=== PATIENT | female | born 1995 | race Caucasian/White ===

== ENCOUNTER 2022-12-11 14:32 | Outpatient (CLI) | payer OTHER ==
[2022-12-11] MEDS ORDERED: ACETAMINOPHEN TAB 500 MG TAB PO PRN (15:18)
[2022-12-11 15:30] LABS: Appearance,Urine Cloudy (Clear); Bacteria,Urine Occasional /hpf; Bilirubin,Urine Negative (Negative); Blood,Urine Small (Negative); Color,Urine Yellow; Glucose,Urine (UA) Negative (Negative); Ketones,Urine Negative (Negative); Leukocyte Esterase,Urine Trace (Negative); Mucus,Urine Rare /hpf; Nitrite,Urine Negative (Negative); PH, Urine 6.5 (5.0-8.0); Protein,Urine 4+ (Negative); RBC,Urine 2 /hpf (0-5); Specific Gravity,Urine 1.026 (1.001-1.035); Squamous Epithelial Cell,Urine 5 /hpf (0-4); Urobilinogen,Urine <2.0 mg/dL (<2.0); WBC,Urine 21 /hpf (0-5)
[2022-12-11] MEDS ORDERED: BETAMET ACET-BETAMETH SOD PHOS 6 MG/ML MDV IM SCH (15:30)
[2022-12-11] MEDS ORDERED: NIFEdipine 10 MG CAP PO SCH (15:30)
[2022-12-11 15:41] LABS: ALT 45 U/L (4-34); AST 44 U/L (14-36); African American GFR (CKD) >90 (>60 ml/min/1.73 sqM); Blood Urea Nitrogen 24 mg/dL (7-17); LDH 295 U/L (120-246); Non-African American GFR(CKD) 84 (>60 ml/min/1.73 sqM); Uric Acid 9.6 mg/dL (3.7-7.4)
[2022-12-11 15:50] LABS: Basophils % (A) 0 %; Eosinophils # (A) 0.1 k/uL (0-0.7); Eosinophils % (A) 1 %; HCT 36.8 % (34.0-46.0); Lymphocytes # (A) 1.1 k/uL (1.0-4.8); Lymphocytes % (A) 14 %; MCH 32.5 pg (25.0-35.0); MCHC 35.3 g/dL (31.0-37.0); Mean Platelet Volume 12.5; Monocytes # (A) 0.3 k/uL (0-1.0); Monocytes % (A) 4 %; Neutrophils # (A) 6.2 k/uL (1.3-7.7); Neutrophils % (A) 80 %; Platelet Count 144 k/uL (150-450); WBC 7.8 k/uL (3.8-10.6)
[2022-12-11 15:57] LABS: Creatinine,Urine Random 194.2 mg/dL
[2022-12-11 16:18] LABS: Large Platelets Present; RBC Morphology Normal
--- NOTE | 2022-12-11 16:29 | P.HPOB ---
History of Present Illness H&P Date: 12/11/22 Chief Complaint: headache, nausea, vomiting, high blood pressure Ms. lA is a 27 year old female at 30 weeks and 4 days gestation with EDC of 02/15/2023 by sure LMP who presents to triage with a 2-week history of swelling in hands and face as well as headaches over the past few days. She is from [place] and drove to [place] to visit her mother. Her mother is a nurse and has been monitoring her blood pressures at home. Today her blood pressure was 140s/90s. She denies visual changes. She has intermittent epigastric pain with the nausea and vomiting. She denies right upper quadrant pain. She has had care with a [facility]. She has had one ultrasound in the at 22 weeks which gave an EDC of 02/03/2023. She also notes that she had protein in her urine at a recent appointment. Past medical history is unremarkable. The patient has never had surgery. She denies smoking, drinking, and drug use in . She denies any history of STDs. Past Medical History History of Any Multi-Drug Resistant Organisms: None Reported Smoking Status: Never smoker Medications and Allergies Home Medications Medication Instructions Recorded Confirmed Type No Known Home Medications 12/11/22 12/11/22 History Allergies Allergy/AdvReac Type Severity Reaction Status Date / Time Penicillins Allergy Rash/Hives Verified 12/11/22 14:55 Exam Intake and Output 12/11/22 12/11/22 12/11/22 06:59 14:59 22:59 Other: Weight 77.111 kg Focused physical exam is performed. This is a healthy-appearing in no apparent distress. Abdomen is soft. FHTs are reactive and reassuring. Results Result Diagrams: 12/11/22 15:00 12/11/22 15:00 Abnormal Lab Results - Last 24 Hours (Table) 12/11/22 12/11/22 12/11/22 Range/Units 15:00 15:00 15:21 Plt Count 144 L (150-450) k/uL BUN 24 H (7-17) mg/dL Uric Acid 9.6 H (3.7-7.4) mg/dL AST 44 H (14-36) U/L ALT 45 H (4-34) U/L Lactate Dehydrogenase 295 H (120-246) U/L Urine Appearance Cloudy H (Clear) Urine Protein 4+ H (Negative) Urine Blood Small H (Negative) Ur Leukocyte Esterase Trace H (Negative) Urine WBC 21 H (0-5) /hpf Ur Squamous Epith Cells 5 H (0-4) /hpf Urine Bacteria Occasional H (None) /hpf Urine Mucus Rare H (None) /hpf Assessment and Plan Assessment: 27 year old at 30 weeks and 4 days with EDC of 02/15/2023 by LMP with pre- eclmapsia with severe features. Plan: Admit, start on magnesium sulfate for 24 hours for seizure prophylaxis. Procardia 30mg daily to control blood pressures. LFTs mildly elevated, uric acid elevated, urine P:C >3.0. Will monitor blood pressures overnight to determine if the patient needs transfer to a higher acuity facility. Time with Patient: Greater than 30 (35 minutes)
[2022-12-11] MEDS ORDERED: MAGNESIUM SULFATE-WATER PMX 4 GM in WATER FOR INJECTION 1 100ML.BAG IVPB ONE (17:02)
[2022-12-11] MEDS ORDERED: MAGNESIUM SULFATE-WATER PMX 20 GM in WATER FOR INJECTION 1 500ML.BAG IV SCH (17:15)
[2022-12-11 18:23] VITALS: BP 173/98; PULSE 64; RESP 14; TEMP 97.5
== END 2022-12-11 18:35 | disposition other institution (70) ==
LOC: FBPOP 14:32 → UNDOADMOB 15:29 → 4FBP 15:29 → FBPOP 18:35
PROVIDERS: ATTEND Obstetrics & Gynecology
DX: O14.93 Unspecified pre-eclampsia, third trimester (principal); Z3A.30 30 weeks gestation of pregnancy; Z88.0 Allergy status to penicillin
CPT/HCPCS: 59025; 99215; 36415; 82570; 84156; 82565; 83615; 84450; 84460; 84520; 84550; 85025; 81001; J3475 ×2; J0702